=== PATIENT | male | born 2000 | race Caucasian/White ===

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

== ENCOUNTER 2021-01-20 14:39 | Emergency (ER) | payer OTHER, SELFPAY ==
--- NOTE | 2021-01-20 17:24 | PC.NURSE ---
PT is going to the doctor tomorrow and didnt want to wait any longer
[2021-01-20 17:25] VITALS: BP 0/0; PULSE 0; RESP 0; TEMP -17.7; TEMP 0; O2SAT 0
== END 2021-01-20 17:27 | disposition left against medical advice (07) ==
PROVIDERS: Emergency Provider Nurse Practitioner; PCP Emergency Medicine
DX: Z53.21 Procedure and treatment not carried out due to patient leaving prior to being seen by health care provider (principal)

== ENCOUNTER 2021-07-02 10:09 | Emergency (ER) | payer OTHER, SELFPAY ==
[2021-07-02 10:10] VITALS: BP 145/85; PULSE 83; RESP 19; TEMP 37.1; O2SAT 99; BMI 22.1
--- NOTE | 2021-07-02 11:44 | HMH.EDUTC ---
[facility] – [place] Disposition Clinical Impression: URI (upper respiratory infection) Qualifiers: URI type: unspecified URI Qualified Code(s): J06.9 - Acute upper respiratory infection, unspecified Disposition: Home, Self-Care Condition on Discharge: Good Instructions: Sinusitis, Cough Additional Instructions: Make sure to clean area well with antibacterial soap and water Use topical antibiotic ointment apply to lesions as directed Follow up with Dermatology for further evaluation and treatment Warm soaks may help to clear pores and help with areas on scrotum Straight to ER if any life threatening symptoms Follow up with your Family Doctor if no improvement or any worsening of symptoms Prescriptions: Benzonatate [Benzonatate 100mg cap] 100 mg PO Q8HP PRN #15 cap PRN Reason: Cough Transmission Status: Received by [facility] Mupirocin [Bactroban 2% Ointment 22gm tube] 1 applicatio TP TID 10 Days #22 gm Transmission Status: Received by [facility] Doxycycline Monohydrate [Doxycycline Som[place]ell 100mg Tab] 100 mg PO BID 10 Days #20 tab Transmission Status: [facility] Referrals: Erich Wood MD [Primary Care Provider] - Ange Araya MD [Referring] - Time of Disposition: 11:57 Medical Decision Making - Momo Inquiry Pt receiving controlled substance: No Momo was queried for this patient: No Vital Signs: 07/02/21 10:10 07/02/21 12:03 Temperature 98.7 F 98.7 F Temperature Source Oral Oral Pulse Rate 83 Pulse Rate [Left Radial] 83 Respiratory Rate 19 16 Blood Pressure 145/85 H Blood Pressure [Right Arm] 145/85 H Blood Pressure Mean [Right Arm] 105 02 Sat by Pulse Oximetry 99 Oxygen Delivery Method Room Air Room Air Orders (Tests/Meds): ORDERS Category Date Time Status Wound Culture and Gram Stain Stat Micro 07/02/21 11:36 Results [facility] [place] HPI - General Stated complaint: rash Time Seen by Provider: 07/02/21 11:44 Mode of Arrival: Ambulatory Source of Information: Patient Limitations: No Limitations Description of Symptoms (Recalled from Triage Doc. by RN): PRODUCTIVE COUGH X 1 WEEK, RASH IN GROIN X 2 MONTHS HEENT Symptoms (Recalled from RN notes): No Resp Symptoms (Recalled from RN notes): Yes Skin Symptoms (Recalled from RN notes): Yes MS Symptoms (Recalled from RN notes): No Functional Status (Recalled from RN notes): N/A - History of Present Illness Provider Complaint: Patient state that he has had a white pimple like rash on his scrotum for about 2 months States that they do not itchy or hurt States that also he has been having sinus congestions and cough that at times is productive of a small amount of mucous States that today he came in to get checked to see what it could be - Related Data Previous Rx's Medication Instructions Recorded cariprazine 1.5 mg capsule 1.5 mg PO DAILY #30 cap 01/14/21 trazodone 50 mg tablet 50 mg PO .COMPLEX #60 tab 01/14/21 albuterol sulfate 90 mcg/actuation 2 puff INHALATION Q6H PRN 7 Days 01/20/21 aerosol inhaler #6.7 g azithromycin 250 mg tablet 250 mg PO QDAY 5 Days #6 tab 01/20/21 benzonatate 200 mg capsule 200 mg PO TID PRN 7 Days #21 cap 01/20/21 Benzonatate [Benzonatate 100mg 100 mg PO Q8HP PRN #15 cap 07/02/21 cap] Doxycycline Monohydrate 100 mg PO BID 10 Days #20 tab 07/02/21 [Doxycycline Somervell 100mg Tab] Mupirocin [Bactroban 2% Ointment 1 applicatio TP TID 10 Days #22 gm 07/02/21 22gm tube] Allergies Allergy/AdvReac Type Severity Reaction Status Date / Time AMOXICILLIN Allergy Unknown Uncoded 01/20/21 16:59 ASPIRIN Allergy Unknown NA-NAUSEA/V Uncoded 01/20/21 16:59 OMITING PCN (PENICILLIN) Allergy Unknown Uncoded 01/20/21 16:59 - Worker's Comp Is this a Worker's Comp case?: No Is this an [facility] Worker's Comp?: No Is this a [facility] Worker's Comp?: No [facility] History - Hepatitis A Screen Drug use history?: No High risk sexual behavior
[2021-07-02 12:03] VITALS: BP 145/85; PULSE 83; RESP 16; TEMP 37.1; O2SAT 99
[2021-07-03 20:10] LABS: Neisseria gonorrhoeae, NAA Negative (Negative)
== END 2021-07-02 12:03 | disposition home or self-care (01) ==
PROVIDERS: Emergency Provider Nurse Practitioner; PCP Emergency Medicine
DX: J06.9 Acute upper respiratory infection, unspecified (principal); R21 Rash and other nonspecific skin eruption; Z88.0 Allergy status to penicillin; Z88.6 Allergy status to analgesic agent; Z88.1 Allergy status to other antibiotic agents; Z72.0 Tobacco use; F12.90 Cannabis use, unspecified, uncomplicated
CPT/HCPCS: 87070; 87077; 87186; 87205; 87491; 87591; 99212; G0463

== ENCOUNTER 2021-07-04 09:29 | Emergency (ER) | payer OTHER, SELFPAY ==
[2021-07-04] VITALS (8 sets, daily range): BP systolic 112–137; BP diastolic 58–77; PULSE 56–70; RESP 14–18; TEMP 36.7–36.8; O2SAT 96–100; BMI 22.8
--- NOTE | 2021-07-04 09:29 | ECG_ITS ---
APPROVED REPORT Exam: Resting ECG HR:64 bpm ECG Measurements Heart Rate 64 AXES FL 162 P 47 QRSd 112 QRS 65 QT 414 T 21 QTc 424 Conclusion SINUS RHYTHM MODERATE INTRAVENTRICULAR CONDUCTION DELAY [110+ ms QRS DURATION] BORDERLINE ECG UNCONFIRMED REPORT Electronically signed by : Vikas Dotson MD 07/05/2021 15:12:36
--- NOTE | 2021-07-04 09:46 | XR_ITS ---
PROCEDURE INFORMATION: Exam: XR Chest Exam date and time: 07/04/2021 9:51 AM Age: 21 years old Clinical indication: Chest pressure; Patient HX: Smoker, chest pain since this morning; Additional info: Cp TECHNIQUE: Imaging protocol: XR of the chest. Views: 2 views. COMPARISON: No relevant prior studies available. FINDINGS: Lungs: Mild interstitial prominence, without acute airspace disease . Pleural spaces: No pleural effusion. Heart/Mediastinum: Normal configuration of the heart. Bones/joints: Unremarkable. Gastrointestinal tract: Prominent gastric fluid. IMPRESSION: Mild interstitial prominence, without acute airspace disease .
[2021-07-04 09:58] LABS: Basophils # 0.3 K/mm3 (0-0.2); Basophils % 2.3 % (0.1-2.0); Eosinophils # 0.3 K/mm3 (0.0-0.4); Eosinophils % 2.6 % (0.1-12.0); Hematocrit 48.4 % (42.0-52.0); Lymphocytes # 3.7 K/mm3 (0.7-4.5); Lymphocytes % 34.6 % (10-50); Mean Corpuscular HGB Conc 33.1 g/dL (31.8-35.4); Mean Corpuscular Hemoglobin 30.4 pg (27.0-31.2); Mean Corpuscular Volume 91.7 fl (80-94); Mean Platelet Volume 7.8 fl (7.4-10.4); Monocytes # 0.6 K/mm3 (0.1-1.0); Monocytes % 5.8 % (1.7-9.3); Neutrophils # 5.8 K/mm3 (1.8-7.8); Neutrophils % 54.6 % (37.0-80.0); Platelet Count 512 K/mm3 (142-424); Red Blood Count 5.28 M/mm3 (4.60-6.20); White Blood Count 10.6 K/mm3 (4.5-13.0)
[2021-07-04 10:02] LABS: Anion Gap 11.7 mEq/L (5-15); Blood Urea Nitrogen 14 mg/dl (9-20); Calcium 9.3 mg/dl (8.4-10.2); Carbon Dioxide 28 mmol/L (22.0-30.0); Chloride 103 mmol/L (98-107); Creatinine Clearance Estimated 167 mL/min (50-200); Estimated Glomerular Filt Rate 144 ml/min (>60); GFR (African American) 174 ML/MIN (>60); Glucose 105 mg/dl (74-100); Potassium 3.7 mmoL/L (3.5-5.1); Sodium 139 mmol/L (136-145)
--- NOTE | 2021-07-04 10:10 | HMH.EDGENADL ---
ED Disposition Clinical Impression: Chest pain Qualifiers: Chest pain type: unspecified Qualified Code(s): R07.9 - Chest pain, unspecified Disposition: Home, Self-Care Condition on Discharge: Good Additional Instructions: Please return to the emergency department with any new or worsening symptoms including fainting, difficulty breathing, worsening chest pain or any other new or concerning symptoms. Referrals: Provider,Referral, MD [Primary Care Provider] - - Critical Care Critical Care Time: No Attestation: On 07/04/21, the high probability of a clinically significant, sudden or life threatening deterioration of the following system(s) required my full and direct attention, intervention and personal management. The time I documented below is in addition to time spent performing reported procedures but includes the following listed in this critical care notation. Medical Decision Making - Momo Inquiry Pt receiving controlled substance: No Vital Signs: 07/04/21 09:29 07/04/21 10:30 07/04/21 11:00 Temperature 98.2 F Temperature Source Oral Pulse Rate 60 56 L Pulse Rate [Right Radial] 70 Respiratory Rate 18 14 16 Blood Pressure 117/62 115/67 Blood Pressure [Right Arm] 137/77 Blood Pressure Mean 80 74 Blood Pressure Mean [Right Arm] 97 Blood Pressure Source [Right Arm] Automatic Cuff Blood Pressure Position [Right Arm] Sitting 02 Sat by Pulse Oximetry 100 98 97 Oxygen Delivery Method Room Air 07/04/21 11:30 07/04/21 12:00 07/04/21 12:28 Temperature Temperature Source Pulse Rate 56 L 56 L 63 Pulse Rate [Right Radial] Respiratory Rate 16 18 18 Blood Pressure 114/59 L 115/61 117/69 Blood Pressure [Right Arm] Blood Pressure Mean 68 72 77 Blood Pressure Mean [Right Arm] Blood Pressure Source [Right Arm] Blood Pressure Position [Right Arm] 02 Sat by Pulse Oximetry 97 96 99 Oxygen Delivery Method 07/04/21 12:31 Temperature Temperature Source Pulse Rate 60 Pulse Rate [Right Radial] Respiratory Rate 18 Blood Pressure 112/58 L Blood Pressure [Right Arm] Blood Pressure Mean 72 Blood Pressure Mean [Right Arm] Blood Pressure Source [Right Arm] Blood Pressure Position [Right Arm] 02 Sat by Pulse Oximetry 99 Oxygen Delivery Method - Lab Data Lab Results 07/04/21 09:36: WBC 10.6, RBC 5.28, Hgb 16.0, Hct 48.4, MCV 91.7, MCH 30.4, MCHC 33.1, RDW 14.0, Plt Count 512 H, MPV 7.8, Neut % (Auto) 54.6, Lymph % (Auto) 34.6, [place] % (Auto) 5.8, Eos % (Auto) 2.6, Baso % (Auto) 2.3 H, Neut # (Auto) 5.8, Lymph # (Auto) 3.7, [place] # (Auto) 0.6, Eos # (Auto) 0.3, Baso # (Auto) 0.3 H 07/04/21 09:36: Sodium 139, Potassium 3.7, Chloride 103, Carbon Dioxide 28, Anion Gap 11.7, BUN 14, Creatinine 0.70, Estimated Creat Clear 167, Estimated GFR 144, Est GFR ( Amer) 174, Glucose 105 H, Calcium 9.3, Troponin I < 0.01 07/04/21 12:38: Troponin I < 0.01 Result diagrams: 07/04/21 09:36 07/04/21 09:36 Orders (Tests/Meds): ED MEDICATIONS Generic Name Dose Route Start Last Admin Trade Name Freq PRN Reason Stop Dose Admin Sodium Chloride 10 ml 07/04/21 09:46 Sodium Chloride 0.9% 10ml Flush Syringe IV 08/03/21 09:45 NEEDED PRN Maintain IV Site ORDERS Category Date Time Status Troponin I Q3H Lab 07/04/21 16:00 Ordered - GIULIA Score for Non-Stemi Age of Patient: <30 years old Heart Rate: 70-89 bpm Systolic Blood Pressure: 120-139 mmhg Serum Creatinine: 0.40-0.79 mg/dl CHF [place] Class: I-No CHF Other Risk Factors: None Non-Stemi Risk Score: 47 Medical Decision Narrative: 21-year-old male presents emergency department stating that while he was pacing around his house this morning he began to have chest pain not associated with diaphoresis shortness of breath or other constitutional symptoms. Patient is moving air appropriately on physical examination and is hemodynamically stable with benign physical examination without lower extrem
[2021-07-04 10:20] LABS: Troponin I < 0.01 ng/ml (0.00-0.034)
[2021-07-04 13:24] LABS: Troponin I < 0.01 ng/ml (0.00-0.034)
== END 2021-07-04 13:40 | disposition home or self-care (01) ==
PROVIDERS: Emergency Provider Student in an Organized Health Care Education/Training Program
DX: R07.9 Chest pain, unspecified (principal); F41.9 Anxiety disorder, unspecified; F17.210 Nicotine dependence, cigarettes, uncomplicated; Z88.0 Allergy status to penicillin; Z88.1 Allergy status to other antibiotic agents; Z88.3 Allergy status to other anti-infective agents; Z88.6 Allergy status to analgesic agent
CPT/HCPCS: 36415; 71046; 80048; 84484; 85025; 93005; 99285

== ENCOUNTER 2022-01-03 23:28 | Emergency (ER) | payer OTHER, SELFPAY ==
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
[2022-01-03 23:43] VITALS: BP 148/98; PULSE 88; RESP 16; TEMP 36.8; O2SAT 98; BMI 23.1
--- NOTE | 2022-01-03 23:45 | ECG_ITS ---
APPROVED REPORT Exam: Resting ECG HR:87 bpm ECG Measurements Heart Rate 87 AXES AK 177 P 82 QRSd 94 QRS 88 QT 335 T 67 QTc 379 Conclusion SINUS RHYTHM POSSIBLE RIGHT ATRIAL ENLARGEMENT [0.25mV P-WAVE] BORDERLINE ECG UNCONFIRMED REPORT Electronically signed by : Vikas Dotson MD 01/04/2022 16:38:41
--- NOTE | 2022-01-03 23:45 | XR_ITS ---
PROCEDURE INFORMATION: Exam: XR Chest Exam date and time: 01/04/2022 12:19 AM Age: 21 years old Clinical indication: Sternal or substernal pain; Additional info: Chest pain TECHNIQUE: Imaging protocol: Radiologic exam of the chest. Views: 1 view. COMPARISON: CR XR CHEST 2V 07/04/2021 9:51 AM FINDINGS: Tubes, catheters and devices: Leads overlying chest. Lungs: No consolidation. Pleural spaces: No significant pleural effusion. No pneumothorax. Heart/Mediastinum: No cardiomegaly. Bones/joints: No displaced fracture. Soft tissues: Unremarkable. IMPRESSION: No definite acute cardiopulmonary disease.
[2022-01-03 23:56] LABS: Basophils # 0.3 K/mm3 (0-0.2); Basophils % 2.1 % (0.1-2.0); Eosinophils # 0.2 K/mm3 (0.0-0.4); Eosinophils % 1.9 % (0.1-12.0); Hematocrit 50.3 % (42.0-52.0); Lymphocytes # 2.5 K/mm3 (0.7-4.5); Lymphocytes % 21.4 % (10-50); Mean Corpuscular HGB Conc 31.8 g/dL (31.8-35.4); Mean Corpuscular Hemoglobin 29.2 pg (27.0-31.2); Mean Corpuscular Volume 91.8 fl (80-94); Monocytes # 0.4 K/mm3 (0.1-1.0); Neutrophils # 8.4 K/mm3 (1.8-7.8); Neutrophils % 71.6 % (37.0-80.0); Platelet Count 496 K/mm3 (142-424); Red Blood Count 5.48 M/mm3 (4.60-6.20); Red Cell Distribution Width 13.9 % (11.5-17.5); White Blood Count 11.7 K/mm3 (4.5-13.0)
[2022-01-03 23:59] LABS: Magnesium 1.9 mg/dl (1.6-2.3)
[2022-01-04] VITALS: BP 116/76; PULSE 82; RESP 19; O2SAT 99
[2022-01-04] LABS: Alanine Aminotransferase 27 U/L (12-78); Albumin Level 4.6 g/dl (3.5-5.0); Albumin/Globulin Ratio 1.4 (1.1-1.8); Alkaline Phosphatase 146 U/L (38-126); Anion Gap 16.9 mEq/L (5-15); Aspartate Amino Transferase 40 U/L (17-59); Bilirubin,Total 0.7 mg/dl (0.2-1.3); Blood Urea Nitrogen 10 mg/dl (9-20); Calcium 9.4 mg/dl (8.4-10.2); Carbon Dioxide 27 mmol/L (22.0-30.0); Chloride 100 mmol/L (98-107); Creatinine Clearance Estimated 160 mL/min (50-200); Estimated Glomerular Filt Rate 144 ml/min (>60); GFR (African American) 174 ML/MIN (>60); Globulin 3.4 g/dL (1.3-3.2); Glucose 100 mg/dl (74-100); Potassium 3.9 mmoL/L (3.5-5.1); Sodium 140 mmol/L (136-145)
[2022-01-04 00:05] LABS: Barbiturates Screen,Urine Negative ng/ml (<200)
[2022-01-04 00:06] LABS: Amphetamine/Metha Screen,Urine Negative ng/ml (<1000); Benzodiazepines Screen,Urine Negative ng/ml (<200)
[2022-01-04 00:07] LABS: Cannabinoid Screen,Urine Negative ng/ml (<50)
[2022-01-04 00:08] LABS: Cocaine Screen,Urine Negative ng/ml (<300); Methadone Screen,Urine Negative ng/ml (<300)
[2022-01-04 00:09] LABS: Opiate Screen,Urine Negative ng/ml (<300); Phencyclidine Screen,Urine Negative ng/ml (<25)
--- NOTE | 2022-01-04 00:10 | PC.NURSE ---
RAD at for CXR
[2022-01-04 00:12] LABS: Troponin I < 0.01 ng/ml (0.00-0.034)
[2022-01-04 00:29] VITALS: BP 116/76; PULSE 78; PULSE 82; RESP 16; TEMP 36.8; O2SAT 99
[2022-01-04 00:31] LABS: Thyroid Stimulating Hormone 0.94 uIU/mL (0.465-4.68)
== END 2022-01-04 00:37 | disposition home or self-care (01) ==
PROVIDERS: Emergency Provider Emergency Medicine; PCP Emergency Medicine
DX: R00.2 Palpitations (principal)
CPT/HCPCS: 71045; 80053; 80305; 83735; 84443; 84484; 85025; 93005; 99284

== ENCOUNTER 2022-02-27 11:32 | Emergency (ER) | payer OTHER, SELFPAY ==
--- NOTE | 2022-02-27 11:27 | ECG_ITS ---
APPROVED REPORT Exam: Resting ECG HR:79 bpm ECG Measurements Heart Rate 79 AXES NM 166 P 74 QRSd 104 QRS 83 QT 375 T 34 QTc 410 Conclusion SINUS RHYTHM POSSIBLE LEFT ATRIAL ENLARGEMENT [-0.1mV P-WAVE IN V1/V2] BORDERLINE ECG UNCONFIRMED REPORT Electronically signed by : Vikas Dotson MD 03/01/2022 07:16:41
[2022-02-27 11:32] VITALS: BP 122/80; PULSE 77; RESP 18; TEMP 36.7; O2SAT 99; BMI 20.7
--- NOTE | 2022-02-27 11:35 | PC.NURSE ---
2442 ED MD AT BEDSIDE
--- NOTE | 2022-02-27 11:38 | HMH.EDGENADL ---
Discharge Plan Disposition Patient Disposition: Home, Self-Care Condition: Good Chief Complaint: Arrhythmia/Palpitations Prescriptions Prescriptions: No Action escitalopram oxalate [Lexapro] 10 mg tablet 10 mg PO DAILY Qty: 30 0RF Rx Instructions: step one escitalopram oxalate [Lexapro] 20 mg tablet 20 mg PO DAILY Qty: 30 0RF Rx Instructions: step two Referrals Follow up/Referrals: Provider,Referral, [Primary Care Provider] - See instructions Rufina Linn APRN [Nurse Practitioner] - See instructions Activity Restrictions/Add. Instructions Additional Instructions/Restrictions: Follow-up with behavioral medicine, Rufina Linn, for depression. Call for appointment. Additional instructions for CHEST PAIN: See your physician as soon as possible for further evaluation. Return immediately if worsening chest pain, vomiting, shortness of breath, fever, coughing of blood. Clinical Impressions Clinical Impression: Atypical chest pain Instructions Patient Instructions: DI for Atypical Chest Pain Discharge ED Provider: Saud Bryant General Adult HPI General Chief complaint: Arrhythmia/Palpitations Stated complaint: HEART PALPATATIONS Time Seen by Provider: 02/27/22 12:10 History of Present Illness HPI narrative: Complains of chest pain in his lower sternal area since 10 AM. States that he was breathing harder earlier, but no shortness of breath at present. Currently says he has a tightness in his chest and in his throat. Denies cough or fever. He had nausea but no vomiting. No diaphoresis. No leg pain or swelling. No recent hospitalizations, surgery, travel. No known heart or lung conditions. He is a smoker. States that he used to use drugs, states he was using methamphetamine but not for the past couple of months. No family history of heart disease. And grandmother is with him and states his mom also has requested that he have a psychiatric evaluation because of depression. Related Data Previous Rx's Medication Instructions Recorded escitalopram oxalate 10 mg tablet 10 mg PO DAILY #30 tabs 07/20/21 (Lexapro) escitalopram oxalate 20 mg tablet 20 mg PO DAILY #30 tabs 07/20/21 (Lexapro) Allergies Allergy/AdvReac Type Severity Reaction Status Date / Time amoxicillin Allergy Unknown Verified 02/27/22 12:21 allergy reaction aspirin Allergy Nausea/Vomi Verified 02/27/22 12:21 ting Penicillins Allergy Unknown Verified 02/27/22 12:21 allergy reaction PFSH PFS Disclaimer: The information contained in this section may have been updated after the patient was seen, as this information can be updated by other users. Medical History (Updated 02/27/22 @ 14:47 by Saud Bryant MD) Anxiety Depression Family History (Updated 02/27/22 @ 12:08 by Debi Mosley RN) Other No significant family history Social History (Updated 02/27/22 @ 12:08 by Debi Mosley RN) Smoking Status: Current every day smoker tobacco type: cigarettes packs per day: 1 alcohol intake: former substance use type: marijuana current occupational status: unemployed Travel in the last 8 weeks: None number of children: 0 ROS Obtained: Yes Systems reviewed as appropriate & no additional complaints except as documented Constitutional Constitutional: Denies fever(s), Denies headache(s) and Denies weakness ENT Ears, Nose, Mouth, and Throat: Denies headache(s), Denies nasal discharge and Denies sore throat Cardiovascular Cardiovascular: Reports chest pain, Denies palpitations and Denies rapid heart rate Respiratory Respiratory: Reports shortness of breath and Denies cough Gastrointestinal Gastrointestingal: Denies abdominal pain, constipation, diarrhea or vomiting Genitourinary Male Genitourinary: Denies difficulty urinating and Denies flank pain Musculoskeletal Musculoskeletal: Denies numbness Neurologic Neurologic: Denies headache(
[2022-02-27 12:05] LABS: Chloride 105 mmol/L (98-107); Potassium 3.3 mmoL/L (3.5-5.1); Sodium 142 mmol/L (136-145)
[2022-02-27 12:08] LABS: Alanine Aminotransferase 20 U/L (12-78); Albumin Level 4.6 g/dl (3.5-5.0); Albumin/Globulin Ratio 1.6 (1.1-1.8); Alkaline Phosphatase 84 U/L (38-126); Anion Gap 11.3 mEq/L (5-15); Aspartate Amino Transferase 30 U/L (17-59); Basophils # 0.2 K/mm3 (0-0.2); Basophils % 1.4 % (0.1-2.0); Bilirubin,Total 0.4 mg/dl (0.2-1.3); Blood Urea Nitrogen 15 mg/dl (9-20); Carbon Dioxide 29 mmol/L (22.0-30.0); Creatinine Clearance Estimated 132 mL/min (50-200); Eosinophils # 0.4 K/mm3 (0.0-0.4); Eosinophils % 3.1 % (0.1-12.0); Estimated Glomerular Filt Rate 123 ml/min (>60); GFR (African American) 149 ML/MIN (>60); Globulin 2.8 g/dL (1.3-3.2); Hematocrit 46.8 % (42.0-52.0); Hemoglobin 15.3 g/dL (14.1-18.0); Lymphocytes # 4.4 K/mm3 (0.7-4.5); Lymphocytes % 33.3 % (10-50); Mean Corpuscular HGB Conc 32.6 g/dL (31.8-35.4); Mean Corpuscular Hemoglobin 29.5 pg (27.0-31.2); Mean Corpuscular Volume 90.4 fl (80-94); Mean Platelet Volume 7.9 fl (7.4-10.4); Monocytes # 0.6 K/mm3 (0.1-1.0); Monocytes % 4.4 % (1.7-9.3); Neutrophils # 7.6 K/mm3 (1.8-7.8); Neutrophils % 57.8 % (37.0-80.0); Platelet Count 396 K/mm3 (142-424); Red Blood Count 5.17 M/mm3 (4.60-6.20); Red Cell Distribution Width 14.5 % (11.5-17.5); Total Protein,Serum 7.4 g/dl (6.3-8.2); White Blood Count 13.2 K/mm3 (4.5-13.0)
[2022-02-27 12:09] LABS: Calcium 9.5 mg/dl (8.4-10.2); Glucose 112 mg/dl (74-100)
[2022-02-27 12:21] LABS: Troponin I < 0.01 ng/ml (0.00-0.034)
[2022-02-27 12:34] VITALS: BP 111/67; PULSE 71; RESP 16; O2SAT 98
--- NOTE | 2022-02-27 12:50 | PC.NURSE ---
1250 UA COLLECTED AND SENT TO LAB. PT GIVEN HOSPITAL SOCKS, GRANDMOTHER AT BEDSIDE. CALL LIGHT WITHIN REACH
[2022-02-27 13:07] LABS: Amphetamine/Metha Screen,Urine Negative ng/ml (<1000)
[2022-02-27 13:08] LABS: Barbiturates Screen,Urine Negative ng/ml (<200)
[2022-02-27 13:09] LABS: Benzodiazepines Screen,Urine Negative ng/ml (<200); Cannabinoid Screen,Urine Negative ng/ml (<50)
--- NOTE | 2022-02-27 13:24 | XR_ITS ---
PROCEDURE INFORMATION: Exam: XR Chest Exam date and time: 02/27/2022 1:23 PM Age: 21 years old Clinical indication: Pain; Chest pressure; Additional info: Chest pain TECHNIQUE: Imaging protocol: Radiologic exam of the chest. Views: 2 views. COMPARISON: CR XR CHEST PORTABLE 01/04/2022 12:19 AM FINDINGS: Lungs: Unremarkable. No consolidation. Pleural spaces: Unremarkable. No pleural effusion. No pneumothorax. Heart/Mediastinum: Unremarkable. No cardiomegaly. Bones/joints: Unremarkable. IMPRESSION: No acute findings.
[2022-02-27 13:46] LABS: Opiate Screen,Urine Negative ng/ml (<300)
[2022-02-27 13:47] LABS: Methadone Screen,Urine Negative ng/ml (<300); Phencyclidine Screen,Urine Negative ng/ml (<25)
--- NOTE | 2022-02-27 14:11 | PC.NURSE ---
ROUNDED ON PT, NO NEEDS AT THIS TIME. GRANDMOTHER AT BEDSIDE
[2022-02-27 14:57] VITALS: BP 101/60; PULSE 70; RESP 17; TEMP 36.7; O2SAT 98
[2022-02-27 17:13] LABS: Cocaine Screen,Urine Negative ng/ml (<300)
== END 2022-02-27 14:55 | disposition home or self-care (01) ==
PROVIDERS: Emergency Provider Emergency Medicine
DX: R07.2 Precordial pain (principal); R11.0 Nausea; F32.A Depression, unspecified; F41.9 Anxiety disorder, unspecified; F17.210 Nicotine dependence, cigarettes, uncomplicated; Z88.0 Allergy status to penicillin; Z88.1 Allergy status to other antibiotic agents; Z88.3 Allergy status to other anti-infective agents; Z88.6 Allergy status to analgesic agent
CPT/HCPCS: 71046; 80053; 80305; 84484; 85025; 93005; 99283

== ENCOUNTER 2023-05-26 06:07 | Emergency (ER) | payer OTHER, SELFPAY ==
--- NOTE | 2023-05-26 06:21 | HMH.EDGENADL ---
Discharge Plan Disposition Patient Disposition: Xfer Psychiatric Hosp Prescriptions Prescriptions: No Action escitalopram oxalate [Lexapro] 10 mg tablet 10 mg PO DAILY Qty: 30 0RF Rx Instructions: step one escitalopram oxalate [Lexapro] 20 mg tablet 20 mg PO DAILY Qty: 30 0RF Rx Instructions: step two Referrals Follow up/Referrals: Provider,Referral, [Primary Care Provider] - See instructions Clinical Impressions Clinical Impression: Psychiatric disturbance Discharge ED Provider: Lamont Lizarraga General Adult HPI <Yin Naik DO - Last Filed: 05/26/23 07:11> General Chief complaint: Psychiatric Symptoms Stated complaint: mental check up Time Seen by Provider: 05/26/23 06:18 History of Present Illness HPI narrative: This patient is a 23-year-old male arriving with police officers with concern that he needs a psychiatric evaluation. According to police, the patient was found sitting outside on their steps. He was very paranoid and had unusual thoughts and ideas that did not quite make sense to them, such as telling them that the hospital is inside of him and he is being drugged by the owners of his grandparents house. Given this, they brought him here with concern that he needs a new [place] evaluation for potential inpatient psychiatric hospitalization. The patient states that he was at the police department because he is trying to get away from home because he does not like living with his grandparents. when asked if he has any concerns or complaints, he states that he is worried because there are bugs in his teeth. He states that he needs his teeth pulled, but he is concerned that the bugs that are in between his teeth will prevent that from happening. He also states that his heart is artificially beating because of the machines that they put in him. He stated that they are treating him like a girl, making his heart rate go up, making his temperature go up, and making his face flushed. He does not know who they are. He asked if I am upset with him because of his heart artificially beating, since it is an insult to the hospital. Patient denies any history of any medical problems, psychiatric issues, or drug use. He states that he does smoke cigarettes and drinks alcohol occasionally, but he adamantly denies any other substance abuse. On medical record review, he has a history of methamphetamine use. Related Data Previous Rx's Medication Instructions Recorded escitalopram oxalate 10 mg tablet 10 mg PO DAILY #30 tabs 07/20/21 (Lexapro) escitalopram oxalate 20 mg tablet 20 mg PO DAILY #30 tabs 07/20/21 (Lexapro) Allergies Allergy/AdvReac Type Severity Reaction Status Date / Time amoxicillin Allergy Unknown Verified 02/27/22 12:21 allergy reaction aspirin Allergy Nausea/Vomi Verified 02/27/22 12:21 ting Penicillins Allergy Unknown Verified 02/27/22 12:21 allergy reaction PFSH <Yin Naik DO - Last Filed: 05/26/23 07:11> [facility] Disclaimer: The information contained in this section may have been updated after the patient was seen, as this information can be updated by other users. Medical History Depression Anxiety Family History Other No significant family history Social History Smoking Status: Current every day smoker tobacco type: cigarettes packs per day: 1 alcohol intake: former substance use type: marijuana current occupational status: unemployed Travel in the last 8 weeks: None number of children: 0 <Yin Naik DO - Last Filed: 05/26/23 07:11> ROS Obtained: Yes All systems reviewed & no additional complaints except as documented Physical Exam <DO Elina Swan Last Filed: 05/26/23 07:11> General General appearance: alert, in no apparent distress and anxious Head Head exam: atraumatic and normocephalic Eye Eye exam: Present normal appearance, PERRL and EOMI ENT ENT exam: Present mucous membranes moist, normal external ear exam and other (Extremely poor dentition) Neck Neck exam: Present normal inspection, full ROM and trachea midline; Absent tenderness Chest Chest inspection: Present normal inspection and symmetric chest wall rise; Absent tenderness Respiratory Respiratory exam: Present normal lung sounds bilaterally; Absent respiratory distress, wheezes, stridor or accessory muscle use Cardiovascular Cardiovascular exam: Present normal rhythm and tachycardia Abdominal Exam Abdominal exam: Present soft; Absent distention, tenderness or guarding Extremities Exam Extremities exam: Present normal inspection, full ROM and normal capillary refill; Absent tenderness or edema Back Exam Back exam: Present normal inspection and full ROM; Absent tenderness Neurological Exam Neurological exam: Present alert, oriented X3, CN II-XII intact, normal gait and other (Oriented but with abnormal thought content); Absent motor sensory deficit Expanded Psychiatric Exam Expanded psych exam: Present pressured speech, responds to int stimuli, delusional, paranoid and loose associations Skin Skin exam: Present warm and dry Medical Decision Making <Yin Naik, DO - Last Filed: 05/26/23 07:11> Medical Records Medical records reviewed: Yes I reviewed the patient's medical records. [place] Inquiry Pt receiving controlled substance: No Vital Signs: 05/26/23 06:22 05/26/23 07:00 05/26/23 07:30 Temperature 97.9 F Temperature Source Oral Pulse Rate 100 H 92 H Pulse Rate [Right Radial] 107 H Respiratory Rate 20 20 20 Blood Pressure 114/73 127/69 Blood Pressure [Right Arm] 136/90 Blood Pressure Mean 87 82 Blood Pressure Mean [Right Arm] 105 Blood Pressure Source [Right Arm] Automatic Cuff Blood Pressure Position [Right Arm] Sitting 02 Sat by Pulse Oximetry 99 99 98 Oxygen Delivery Method Room Air 05/26/23 12:41 05/26/23 13:00 Temperature Temperature Source Pulse Rate 83 84 Pulse Rate [Right Radial] Respiratory Rate 16 Blood Pressure 124/71 96/65 L Blood Pressure [Right Arm] Blood Pressure Mean 82 74 Blood Pressure Mean [Right Arm] Blood Pressure Source [Right Arm] Blood Pressure Position [Right Arm] 02 Sat by Pulse Oximetry 96 96 Oxygen Delivery Method Lab Data Lab results reviewed: Yes I reviewed the patient's lab results. Lab Results 05/26/23 06:44: WBC 21.7 H*, RBC 5.13, Hgb 16.0, Hct 48.0, MCV 93.5, MCH 31.2, MCHC 33.4, RDW 14.1, Plt Count 379, MPV 7.9, Neut % (Auto) 67.4, Lymph % (Auto) 24.4, [place] % (Auto) 3.8, Eos % (Auto) 3.0, Baso % (Auto) 1.4, Neut # (Auto) 14.6 H, Lymph # (Auto) 5.3 H, [place] # (Auto) 0.8, Eos # (Auto) 0.6 H, Baso # (Auto) 0.3 H, Total Counted 100, Neutrophils % (Manual) 66, Band Neutrophils % 1.0, Lymphocytes % (Manual) 25, Monocytes % (Manual) 5, Eosinophils % (Manual) 3, Platelet Estimate Normal, RBC Morphology Normal, Sodium 139, Potassium 2.9 L*, Chloride 105, Carbon Dioxide 25, Anion Gap 11.9, BUN 16, Creatinine 0.80, Estimated Creat Clear 113, Estimated GFR 121, Est GFR ( Amer) 146, Glucose 110 H, Calcium 9.3, Total Bilirubin 0.5, AST 41, ALT 26, Alkaline Phosphatase 100, Total Protein 7.7, Albumin 4.8, Globulin 2.9, Albumin/Globulin Ratio 1.7, Salicylates < 1.0 L, Acetaminophen < 10 L, Plasma/Serum Alcohol < 10 05/26/23 07:55: Urine Color Yellow, Urine Appearance Clear, Urine pH 6.5, Ur Specific [place] 1.025, Urine Protein Trace, Urine Glucose (UA) Negative, Urine Ketones Trace, Urine Blood Trace-i, Urine Nitrate Negative, Urine Bilirubin Negative, Urine Urobilinogen 1.0, Ur Leukocyte Esterase Negative, Urine RBC Occasional, Urine WBC 3-5, Ur Squamous Epith Cells Occasional, Urine Bacteria Trace, Urine Opiates Screen Negative, Urine Methadone Screen Negative, Ur Barbituates Screen Negative, Ur Phencyclidine Scrn Negative, Ur Amphetamines Screen Negative, U Benzodiazepines Scrn Negative, Urine Cocaine Screen Negative, U Marijuana (THC) Screen Negative 05/26/23 06:44 05/26/23 06:44 Orders (Tests/Meds): ED MEDICATIONS Discontinued Medications Generic Name Dose Route Start Last Admin Trade Name Terrence PRN Reason Stop Dose Admin Droperidol 5 mg 05/26/23 12:33 05/26/23 12:42 Droperidol 5mg/2ml Vial IV 05/26/23 12:34 5 mg ONCE ONE Administration Potassium Chloride/Water 100 mls @ 100 mls/hr 05/26/23 07:52 05/26/23 09:21 Potassium Chloride 10meq/100ml Ivpb IV 05/26/23 09:51 100 mls/hr Q1H LEIGHA Administration Lactated Ringer's 1,000 mls @ 999 mls/hr 05/26/23 08:21 05/26/23 10:06 Lactated Ringer's 1000 Ml Bag IV 05/26/23 09:21 999 mls/hr .Q1H1M ONE Administration Potassium Chloride 60 meq 05/26/23 07:52 05/26/23 08:11 Potassium Chloride 20meq Tab PO 05/26/23 07:53 60 meq ONCE ONE Administration ORDERS Category Date Time Status XR chest portable Stat Exams 05/26/23 08:21 Taken Acetaminophen Stat Lab 05/26/23 06:44 Completed Complete Blood Count Auto Diff Stat Lab 05/26/23 06:44 Completed Comprehensive Metabolic Panel Stat Lab 05/26/23 06:44 Completed Drug Screen,Urine Stat Lab 05/26/23 07:55 Completed Ethyl Alcohol Stat Lab 05/26/23 06:44 Completed Salicylate Stat Lab 05/26/23 06:44 Completed Urinalysis and Microscopic Stat Lab 05/26/23 07:55 Completed Medical Decision Narrative: In summary, this patient is a 23-year-old male presenting to the Emergency Department for evaluation with police officers with concern that he needs a psychiatric evaluation. Differential diagnoses considered include but are not limited to substance-induced psychiatric disturbance, bipolar disorder, schizophrenia, paranoia. Ruling out the most morbid conditions drove assessment. I reviewed patient's past medical records and noted history of methamphetamine use. On exam, the patient is alert and oriented and nontoxic-appearing. He is slightly tachycardic, but otherwise vitals are reassuring on cardiac telemetry. Patient exhibits unusual thought content with pressured speech, flight of ideas, and he is responding to internal stimuli. He believes that he is controlled by they but he cannot characterize who they are. He is very paranoid. Workup included CBC, CMP, ethanol level, acetaminophen level, salicylate level, urinalysis, urine drug screen, and EKG. Decision was made at this time to initiate the process of involuntary hold so that the patient can be evaluated by psychiatry to determine if he would benefit from inpatient psychiatric evaluation. Patient care was signed out to the oncoming provider, Dr. Lizarraga, pending results and disposition. <Lamont Lizarraga MD - Last Filed: 05/26/23 15:29> Vital Signs: 05/26/23 06:22 05/26/23 07:00 05/26/23 07:30 Temperature 97.9 F Temperature Source Oral Pulse Rate 100 H 92 H Pulse Rate [Right Radial] 107 H Respiratory Rate 20 20 20 Blood Pressure 114/73 127/69 Blood Pressure [Right Arm] 136/90 Blood Pressure Mean 87 82 Blood Pressure Mean [Right Arm] 105 Blood Pressure Source [Right Arm] Automatic Cuff Blood Pressure Position [Right Arm] Sitting 02 Sat by Pulse Oximetry 99 99 98 Oxygen Delivery Method Room Air 05/26/23 12:41 05/26/23 13:00 Temperature Temperature Source Pulse Rate 83 84 Pulse Rate [Right Radial] Respiratory Rate 16 Blood Pressure 124/71 96/65 L Blood Pressure [Right Arm] Blood Pressure Mean 82 74 Blood Pressure Mean [Right Arm] Blood Pressure Source [Right Arm] Blood Pressure Position [Right Arm] 02 Sat by Pulse Oximetry 96 96 Oxygen Delivery Method Lab Data Lab Results 05/26/23 06:44: WBC 21.7 H*, RBC 5.13, Hgb 16.0, Hct 48.0, MCV 93.5, MCH 31.2, MCHC 33.4, RDW 14.1, Plt Count 379, MPV 7.9, Neut % (Auto) 67.4, Lymph % (Auto) 24.4, [place] % (Auto) 3.8, Eos % (Auto) 3.0, Baso % (Auto) 1.4, Neut # (Auto) 14.6 H, Lymph # (Auto) 5.3 H, [place] # (Auto) 0.8, Eos # (Auto) 0.6 H, Baso # (Auto) 0.3 H, Total Counted 100, Neutrophils % (Manual) 66, Band Neutrophils % 1.0, Lymphocytes % (Manual) 25, Monocytes % (Manual) 5, Eosinophils % (Manual) 3, Platelet Estimate Normal, RBC Morphology Normal, Sodium 139, Potassium 2.9 L*, Chloride 105, Carbon Dioxide 25, Anion Gap 11.9, BUN 16, Creatinine 0.80, Estimated Creat Clear 113, Estimated GFR 121, Est GFR ( Amer) 146, Glucose 110 H, Calcium 9.3, Total Bilirubin 0.5, AST 41, ALT 26, Alkaline Phosphatase 100, Total Protein 7.7, Albumin 4.8, Globulin 2.9, Albumin/Globulin Ratio 1.7, Salicylates < 1.0 L, Acetaminophen < 10 L, Plasma/Serum Alcohol < 10 05/26/23 07:55: Urine Color Yellow, Urine Appearance Clear, Urine pH 6.5, Ur Specific [place] 1.025, Urine Protein Trace, Urine Glucose (UA) Negative, Urine Ketones Trace, Urine Blood Trace-i, Urine Nitrate Negative, Urine Bilirubin Negative, Urine Urobilinogen 1.0, Ur Leukocyte Esterase Negative, Urine RBC Occasional, Urine WBC 3-5, Ur Squamous Epith Cells Occasional, Urine Bacteria Trace, Urine Opiates Screen Negative, Urine Methadone Screen Negative, Ur Barbituates Screen Negative, Ur Phencyclidine Scrn Negative, Ur Amphetamines Screen Negative, U Benzodiazepines Scrn Negative, Urine Cocaine Screen Negative, U Marijuana (THC) Screen Negative Orders (Tests/Meds): ED MEDICATIONS Discontinued Medications Generic Name Dose Route Start Last Admin Trade Name Freq PRN Reason Stop Dose Admin Droperidol 5 mg 05/26/23 12:33 05/26/23 12:42 Droperidol 5mg/2ml Vial IV 05/26/23 12:34 5 mg ONCE ONE Administration Potassium Chloride/Water 100 mls @ 100 mls/hr 05/26/23 07:52 05/26/23 09:21 Potassium Chloride 10meq/100ml Ivpb IV 05/26/23 09:51 100 mls/hr Q1H LEIGHA Administration Lactated Ringer's 1,000 mls @ 999 mls/hr 05/26/23 08:21 05/26/23 10:06 Lactated Ringer's 1000 Ml Bag IV 05/26/23 09:21 999 mls/hr .Q1H1M ONE Administration Potassium Chloride 60 meq 05/26/23 07:52 05/26/23 08:11 Potassium Chloride 20meq Tab PO 05/26/23 07:53 60 meq ONCE ONE Administration ORDERS Category Date Time Status XR chest portable Stat Exams 05/26/23 08:21 Taken Acetaminophen Stat Lab 05/26/23 06:44 Completed Complete Blood Count Auto Diff Stat Lab 05/26/23 06:44 Completed Comprehensive Metabolic Panel Stat Lab 05/26/23 06:44 Completed Drug Screen,Urine Stat Lab 05/26/23 07:55 Completed Ethyl Alcohol Stat Lab 05/26/23 06:44 Completed Salicylate Stat Lab 05/26/23 06:44 Completed Urinalysis and Microscopic Stat Lab 05/26/23 07:55 Completed Medical Decision Narrative: In summary, this patient is a 23-year-old male presenting to the Emergency Department for evaluation with police officers with concern that he needs a psychiatric evaluation. Differential diagnoses considered include but are not limited to substance-induced psychiatric disturbance, bipolar disorder, schizophrenia, paranoia. Ruling out the most morbid conditions drove assessment. I reviewed patient's past medical records and noted history of methamphetamine use. On exam, the patient is alert and oriented and nontoxic-appearing. He is slightly tachycardic, but otherwise vitals are reassuring on cardiac telemetry. Patient exhibits unusual thought content with pressured speech, flight of ideas, and he is responding to internal stimuli. He believes that he is controlled by they but he cannot characterize who they are. He is very paranoid. Workup included CBC, CMP, ethanol level, acetaminophen level, salicylate level, urinalysis, urine drug screen, and EKG. Decision was made at this time to initiate the process of involuntary hold so that the patient can be evaluated by psychiatry to determine if he would benefit from inpatient psychiatric evaluation. Patient care was signed out to the oncoming provider, Dr. Lizarraga, pending results and disposition. [place]: I assume primary responsibility for this patient after signout from previous physician. EKG independently interpreted. Sinus rhythm 99 beats a minute no ST changes concerning for acute ischemia. Patient does have nonspecific T wave inversions with normal axis. DC, QRS, QT intervals within normal limits. Workup independently interpreted and significant for nonactionable chemistry or tox labs. Patient has moderately elevated WBC 21.7, but negative chest x-ray, negative urine and patient not having any acute infectious symptoms at this time. Initially, patient voluntary, turned involuntary. Patient was getting aggressive, given 5 mg droperidol IV. [facility] contacted and case was discussed at length, patient to be transferred and admitted for further psychiatric evaluation and management. Critical Care <Yin Naik, DO - Last Filed: 05/26/23 07:11> Critical Care Time Critical Care Time: No
[2023-05-26 06:22] VITALS: BP 136/90; PULSE 107; RESP 20; TEMP 36.6; O2SAT 99; BMI 17.4
--- NOTE | 2023-05-26 06:26 | PC.NURSE ---
patient in room at this time. pd at bedside. physician discussing concerns
[2023-05-26 06:53] LABS: Basophils # 0.3 K/mm3 (0-0.2); Basophils % 1.4 % (0.1-2.0); Eosinophils # 0.6 K/mm3 (0.0-0.4); Lymphocytes # 5.3 K/mm3 (0.7-4.5); Lymphocytes % 24.4 % (10-50); Mean Corpuscular HGB Conc 33.4 g/dL (31.8-35.4); Mean Corpuscular Hemoglobin 31.2 pg (27.0-31.2); Mean Corpuscular Volume 93.5 fl (80-94); Mean Platelet Volume 7.9 fl (7.4-10.4); Monocytes # 0.8 K/mm3 (0.1-1.0); Monocytes % 3.8 % (1.7-9.3); Neutrophils # 14.6 K/mm3 (1.8-7.8); Neutrophils % 67.4 % (37.0-80.0); Platelet Count 379 K/mm3 (142-424); Red Blood Count 5.13 M/mm3 (4.60-6.20); Red Cell Distribution Width 14.1 % (11.5-17.5); White Blood Count 21.7 K/mm3 (4.8-10.8)
[2023-05-26 07:00] VITALS: BP 114/73; PULSE 100; RESP 20; O2SAT 99
--- NOTE | 2023-05-26 07:06 | PC.NURSE ---
faxed information to dispatch for
[2023-05-26 07:09] LABS: Alanine Aminotransferase 26 U/L (12-78); Albumin Level 4.8 g/dl (3.5-5.0); Albumin/Globulin Ratio 1.7 (1.1-1.8); Alkaline Phosphatase 100 U/L (38-126); Anion Gap 11.9 mEq/L (5-15); Aspartate Amino Transferase 41 U/L (17-59); Bilirubin,Total 0.5 mg/dl (0.2-1.3); Blood Urea Nitrogen 16 mg/dl (9-20); Calcium 9.3 mg/dl (8.4-10.2); Carbon Dioxide 25 mmol/L (22.0-30.0); Chloride 105 mmol/L (98-107); Creatinine Clearance Estimated 113 mL/min (50-200); Estimated Glomerular Filt Rate 121 ml/min (>60); GFR (African American) 146 ML/MIN (>60); Globulin 2.9 g/dL (1.3-3.2); Glucose 110 mg/dl (74-100); Sodium 139 mmol/L (136-145); Total Protein,Serum 7.7 g/dl (6.3-8.2)
[2023-05-26 07:10] LABS: MANUAL DIFFERENTIAL MANUAL DIFFERENTIAL (MANUAL DIFF)
--- NOTE | 2023-05-26 07:11 | PC.NURSE ---
re-faxed paperwork using the registration fax machine.
--- NOTE | 2023-05-26 07:26 | ECG_ITS ---
APPROVED REPORT Exam: Resting ECG HR:99 bpm ECG Measurements Heart Rate 99 AXES RI 183 P 83 QRSd 102 QRS 88 QT 344 T 53 QTc 401 Conclusion SINUS RHYTHM POSSIBLE RIGHT ATRIAL ENLARGEMENT [0.25mV P-WAVE] POSSIBLE LEFT ATRIAL ENLARGEMENT [-0.1mV P-WAVE IN V1/V2] Electronically signed by : ARIANNA SERRANO, 05/27/2023 03:30:42
[2023-05-26 07:30] VITALS: BP 127/69; PULSE 92; RESP 20; O2SAT 98
[2023-05-26 07:41] LABS: Acetaminophen < 10 ug/ml (10-30); Salicylate < 1.0 mg/dL (2.0-20.0)
[2023-05-26 07:42] LABS: Potassium 2.9 mmoL/L (3.5-5.1)
[2023-05-26 07:45] LABS: Ethyl Alcohol < 10 mg/dl (0-10)
[2023-05-26 08:00] LABS: Microscopic, Urine URINE MICROSCOPIC (MICROSCOPIC)
--- NOTE | 2023-05-26 08:08 | PC.NURSE ---
Addendum entered by Marga Emanuel RN 05/26/23 08:08: Late note, this was reported to him @ 0742 05/25 Original Note: Dr. Lizarraga notified of critical potassium
[2023-05-26] MEDS: POTASSIUM CHLORIDE 20MEQ TAB 60 MEQ PO (08:11)
[2023-05-26] MEDS: KCl 10mEq/100ml 100 ML 100 MEQ IV ×2 (08:12→09:21)
--- NOTE | 2023-05-26 08:21 | XR_ITS ---
FINAL REPORT CLINICAL HISTORY: leukocytosis, ams COMPARISON: 01/04/2022 FINDINGS: SINGLE-VIEW CHEST The heart size is normal. The mediastinum is normal. The lungs are clear. There is no pneumothorax. IMPRESSION: No acute cardiopulmonary process. Reviewed, Interpreted and Dictated by David Stacy III, MD Transcribed by Alina Melgoza Authenticated and [facility]
--- NOTE | 2023-05-26 08:23 | PC.NURSE ---
Dispatch advised they faxed papers back signed
[2023-05-26 08:25] LABS: Appearance,Urine CLEAR (Clear); Blood, Urine TRACE-I (Negative); Color,Urine YELLOW (Yellow); Glucose,Urine (UA) Negative (Negative); Ketones,Urine TRACE (Negative); Leukocyte Esterase,Urine Negative (Negative); Nitrate,Urine Negative (Negative); PH,Urine 6.5 (5.0-8.5); Protein,Urine TRACE (Negative); Specific Gravity, Urine 1.025 (1.005-1.030)
--- NOTE | 2023-05-26 08:30 | PC.NURSE ---
pt took po potassium. iv currently infusig. pt is very paranoid and afraid. i educated pt thoroughly. he is more at ease. grandmother is @ bedside
--- NOTE | 2023-05-26 08:33 | PC.NURSE ---
pt given blanket and rad at bedside for cxr
--- NOTE | 2023-05-26 08:43 | PC.NURSE ---
grandmother states pt has been having odd behaviors for a while now. he has been very paranoid and often says random and inappropraite things. hes not sleeping and wanders.
--- NOTE | 2023-05-26 08:53 | PC.NURSE ---
Faxed to [place]- busy will retry
[2023-05-26 08:59] LABS: Amphetamine/Metha Screen,Urine Negative ng/ml (<1000); Barbiturates Screen,Urine Negative ng/ml (<200)
[2023-05-26 09:00] LABS: Benzodiazepines Screen,Urine Negative ng/ml (<200)
[2023-05-26 09:01] LABS: Cannabinoid Screen,Urine Negative ng/ml (<50); Cocaine Screen,Urine Negative ng/ml (<300)
[2023-05-26 09:02] LABS: Methadone Screen,Urine Negative ng/ml (<300); Opiate Screen,Urine Negative ng/ml (<300)
[2023-05-26 09:03] LABS: Phencyclidine Screen,Urine Negative ng/ml (<25)
[2023-05-26 09:04] LABS: Bilirubin,Urine Negative (Negative)
--- NOTE | 2023-05-26 09:32 | PC.NURSE ---
Dr. Lizarraga at BS to update pt/visitor on POC
[2023-05-26 09:48] LABS: Eosinophils % 3 % (0-3); Lymphocytes % 25 % (10-50); Monocytes % 5 % (2-9); Neutrophils % 66 % (42-76); Total Cells Counted 100
[2023-05-26 09:49] LABS: Platelet Estimate Normal; RBC Morphology Normal
[2023-05-26] MEDS: LACTATED RINGERS 1000ML 1,000 ML 999 ML IV (10:06)
--- NOTE | 2023-05-26 11:52 | PC.NURSE ---
pt on zoom with the medical center
--- NOTE | 2023-05-26 12:29 | PC.NURSE ---
pt is refusing admission to a behavioral health facility. notified
[2023-05-26 12:41] VITALS: BP 124/71; PULSE 83; O2SAT 96
[2023-05-26] MEDS: droPERidol 5MG/2ML VIAL 5 MG IV (12:42)
[2023-05-26 13:00] VITALS: BP 96/65; PULSE 84; RESP 16; O2SAT 96
[2023-05-26 14:05] LABS: Bacteria,Urine Trace /lpf; RBC,Urine Occasional #/hpf (0-3); Squamous Epithelial Cell,Urine Occasional #/hpf (0-5)
--- NOTE | 2023-05-26 14:24 | PC.NURSE ---
Report called to GRACIELA Lake at [facility].
--- NOTE | 2023-05-26 14:34 | PC.NURSE ---
Called EMS for transport. EMS states they are out on a transfer right now.
--- NOTE | 2023-05-26 16:10 | PC.NURSE ---
grandmother at bedside given sandwich and drink
[2023-05-26 16:49] VITALS: BP 138/68; PULSE 98; RESP 18; TEMP 36.7; O2SAT 98
== END 2023-05-26 16:50 ==
PROVIDERS: Emergency Medicine; Emergency Provider Emergency Medicine
DX: F22 Delusional disorders (principal); F17.210 Nicotine dependence, cigarettes, uncomplicated; R00.0 Tachycardia, unspecified; F32.A Depression, unspecified; F41.9 Anxiety disorder, unspecified
CPT/HCPCS: 71045; 80053; 80307; 80329; 81001; 85007; 85025; 93005; 96361; 96365; 96366; 96375; 99285; J1790